=== PATIENT | female | born 1950 | race Caucasian/White ===

== ENCOUNTER 2023-10-09 08:58 | Emergency (ER) | payer MEDICARE, SELFPAY ==
[2023-10-09 09:07] VITALS: BP 146/79; PULSE 69; RESP 16; TEMP 36.9; O2SAT 100; BMI 28.5
--- NOTE | 2023-10-09 10:18 | ED_ITS ---
HPI - Extremity Injury (Lower) General Chief Complaint: Extremity Injury, Lower Stated Complaint: Lower Left leg pain Time Seen by Provider: 10/09/23 09:53 History of Present Illness HPI Narrative: Patient is a 73-year-old female history of stasis dermatitis in bilateral lower extremities presenting today with worsening erythema. She was actually seen evaluated October 05 by primary care provider when she was having some increased redness in her leg. She was started on Bactrim she is on her 3rd or 4th day of Bactrim she reports a new spot of redness. She reports significant pain and cramping in her calf. No fever or chills no chest pain shortness of breath. No history of DVT or PE. Related Data Home Medications Medication Instructions Recorded Confirmed alendronate 70 mg tablet 70 mg PO QWEEK 05/31/23 10/06/23 clobetasol 0.05 % topical ointment topical DAILY 05/31/23 10/06/23 levothyroxine 50 mcg tablet 50 mcg PO DAILY 05/31/23 10/06/23 lisinopril 10 mg tablet 10 mg PO DAILY 05/31/23 10/06/23 omeprazole 20 mg capsule,delayed 20 mg PO DAILY 05/31/23 10/06/23 release Previous Rx's Medication Instructions Recorded sulfamethoxazole 800 1 tab PO BID #10 tabs 10/06/23 mg-trimethoprim 160 mg tablet (Bactrim DS) cephalexin 500 mg capsule 500 mg PO TID #21 caps 10/09/23 Allergies Allergy/AdvReac Type Severity Reaction Status Date / Time cefuroxime AdvReac Unknown Verified 10/09/23 11:52 indomethacin [From Indocin] AdvReac Unknown Verified 10/09/23 09:12 ipratropium [From Atrovent] AdvReac Unknown Verified 10/09/23 11:52 montelukast [From Singulair] AdvReac Unknown Verified 10/09/23 09:12 oxytetracycline AdvReac Unknown Verified 10/09/23 09:12 [From Terramycin] Patient History Medical History Vertigo (~2021) Recurrent sinusitis Cataracts, bilateral (~2016) History of urinary incontinence (~2019) Colon polyps Stasis dermatitis of both legs History of colon cancer GERD (gastroesophageal reflux disease) Hypothyroidism Benign essential HTN Hyperlipidemia Surgical History Anesthesia Hx of cholecystectomy Family History Father History of heart disease Hyperlipidemia Hypertension History of heart attack Mother Congestive heart failure Atrial fibrillation Brother Cancer Diabetes mellitus Brother Multiple medical problems Sister Lung cancer Stomach cancer Grandfather Pneumonia Grandmother History of heart disease Stroke Social History Smoking Status: Former smoker Smoking Status: Former smoker alcohol intake frequency: 0-2 drinks per day Substance Use Type: does not use Exam Initial Vital Signs Initial Vital Signs: Vital Signs Temperature 98.5 F 10/09/23 09:07 Pulse Rate 69 10/09/23 09:07 Respiratory Rate 16 10/09/23 09:07 Blood Pressure 146/79 H 10/09/23 09:07 Pulse Oximetry 100 10/09/23 09:07 Oxygen Delivery Method Room Air 10/09/23 09:07 GENERAL: Well-appearing, well-nourished and in no acute distress. CARDIOVASCULAR: peripheral pulses in tact, cap refill <2 sec RESPIRATORY: No respiratory distress, speaks in full sentences without difficulty EXTREMITIES: Normal range of motion, no clubbing or edema. Neurovascularly intact NEUROLOGICAL: Cranial nerves II through XII grossly intact. Normal gait and speech. SKIN: Multiple areas left leg patchy erythema non circumferential blanchable Right leg also has smaller patches which she reports is stable Course Orders Ordered: ED Orders 10/09/23 10:23 US periph venous low extrem lt Stat Vital Signs Vital signs: Vital Signs - 8 hr 10/09/23 09:07 10/09/23 11:54 10/09/23 11:55 Temperature 98.5 F Pulse Rate 69 79 Respiratory Rate 16 Blood Pressure 146/79 H 151/72 H Pulse Oximetry 100 94 Oxygen Delivery Method Room Air 10/09/23 11:55 10/09/23 12:00 Temperature 97.7 F Pulse Rate 80 72 Respiratory Rate 16 Blood Pressure 157/72 H Pulse Oximetry 95 95 Oxygen Delivery Method Room Air MDM - Extremity Injury (Lower) Imaging Data US - DVT: Radiologist's Impression: PROCEDURE: US PERIPH VENOUS LOW EXTREM LT INDICATIONS: swelling redness TECHNIQUE: Real-time imaging, as well as color and pulse Doppler interrogation, were performed of the lower extremity deep veins from the inguinal ligament to the popliteal fossa, with documentation of the visualized calf veins. COMPARISON: None. FINDINGS: The common femoral, femoral, popliteal, and the visualized calf veins are normally compressible, and free of intraluminal thrombus. Color and pulse Doppler demonstrate normal phasic intraluminal flow. There is normal augmentation resp onse to distal compression maneuver. IMPRESSION: No findings of lower extremity deep venous thrombosis. Dictated by: Shala Garvin M.D. on 10/09/2023 at 10:35 MDM Narrative Medical decision making narrative: Patient is a 73-year-old female history of stasis dermatitis with started on Bactrim. According to PCP note there is some suspicion for DVT based on history of venous insufficiency visible stasis dermatitis she also has remote history of colon cancer. Patient was instructed to come to the ED if getting worse over the weekend. She has no infectious symptoms is afebrile here. Ultrasound has been reviewed and negative for DVT. Will change antibiotic to Keflex for 7 days to help cover for strep and MRSA Discharge Plan Departure Patient Disposition: Home Clinical Impression: Cellulitis Instructions: DI for Cellulitis -- Adult Activity Restrictions/Additional Instructions: *You have been diagnosed with cellulitis *What to do: Ultrasound is negative today for blood clot. I do think it is more likely cellulitis or stasis dermatitis *Continue to take medications as directed Stop taking Bactrim Start taking Keflex 500 mg 3 times a day for 7 days *Follow up with your primary care provider in 2-3 days or call [phone] Please follow-up with Dr. Umaña *Return to ER if you should have fever chills worsening redness pain swelling or any new, worsening or concerning symptoms Prescriptions: New cephalexin 500 mg capsule 500 mg PO TID Qty: 21 0RF No Action alendronate 70 mg tablet 70 mg PO QWEEK levothyroxine 50 mcg tablet 50 mcg PO DAILY lisinopril 10 mg tablet 10 mg PO DAILY omeprazole 20 mg capsule,delayed release(DR/EC) 20 mg PO DAILY clobetasol 0.05 % ointment topical DAILY sulfamethoxazole-trimethoprim [Bactrim DS] 800-160 mg tablet 1 tab PO BID Qty: 10 0RF Referrals: Bree Hernandez DO [Primary Care Provider] - Stand Alone Forms: Patient Portal/API
--- NOTE | 2023-10-09 10:20 | PC.NURSE ---
Left and right lower leg red patches; painful to palpation. Pt states she also has contact dermatitis.
--- NOTE | 2023-10-09 10:23 | DI.US.S_ITS ---
PROCEDURE: US PERIPH VENOUS LOW EXTREM LT INDICATIONS: swelling redness TECHNIQUE: Real-time imaging, as well as color and pulse Doppler interrogation, were performed of the lower extremity deep veins from the inguinal ligament to the popliteal fossa, with documentation of the visualized calf veins. COMPARISON: None. FINDINGS: The common femoral, femoral, popliteal, and the visualized calf veins are normally compressible, and free of intraluminal thrombus. Color and pulse Doppler demonstrate normal phasic intraluminal flow. There is normal augmentation response to distal compression maneuver. IMPRESSION: No findings of lower extremity deep venous thrombosis. Dictated by: Shala Garvin M.D. on 10/09/2023 at 10:35 Approved by: Shala Garvin M.D. on 10/09/2023 at 10:36
[2023-10-09 11:54] VITALS: PULSE 79; O2SAT 94
[2023-10-09 11:55] VITALS: BP 151/72; PULSE 80; O2SAT 95
[2023-10-09 12:00] VITALS: BP 157/72; PULSE 72; RESP 16; TEMP 36.5; O2SAT 95
== END 2023-10-09 12:00 | disposition home or self-care (01) ==
PROVIDERS: Emergency Provider Emergency Medicine; PCP Family Medicine
DX: L03.116 Cellulitis of left lower limb (principal)
CPT/HCPCS: 93971; 99283

== ENCOUNTER → 2024-05-15 09:35 | Outpatient (CLI) | payer MEDICARE, SELFPAY ==
[2024-05-15 11:31] LABS: Alanine Aminotransferase 17 IU/L (<35); Albumin 4.6 g/dL (3.5-5.0); Albumin Globulin Ratio 1.6 (1.0-2.8); Alkaline Phosphatase 65 U/L (38-126); Aspartate Aminotransferase 25 IU/L (14-36); BUN Creatinine Ratio 18.5 (6-22); Bilirubin Total 0.5 mg/dL (0.2-1.3); Blood Urea Nitrogen 15 mg/dL (7-17); Calcium 9.8 mg/dL (8.4-10.2); Carbon Dioxide 25 mmol/L (22-32); Chloride 96 mmol/L (98-107); Cholesterol 229 mg/dL (140-199); Estimated Glomerular Filt Rate > 60 mL/min (>60); Globulin 2.8 g/dL (1.7-4.1); Glucose 88 mg/dL (80-110); HDL Cholesterol 40 mg/dL (40-60); HEMOLYSIS < 15 (0-50); LDL Cholesterol Calculated 170 mg/dL (<100); Potassium 4.7 mmol/L (3.4-5.1); Sodium 131 mmol/L (137-145); Total Protein 7.4 g/dL (6.3-8.2); Triglycerides 97 mg/dL (35-150)
[2024-05-15 15:35] LABS: Hep C Virus Ab w/Reflex Quant NEGATIVE s/c (NEGATIVE)
== END ==
LOC: LAB 09:36
PROVIDERS: PCP Family Medicine; Referring Provider Family Medicine; Visit Provider Family Medicine
DX: E78.5 Hyperlipidemia, unspecified (principal); I10 Essential (primary) hypertension; E03.9 Hypothyroidism, unspecified; Z11.59 Encounter for screening for other viral diseases
CPT/HCPCS: 36415; 80053; 80061; 84443; 86803

== ENCOUNTER → 2024-06-04 09:59 | Outpatient (CLI) | payer MEDICARE, SELFPAY ==
--- NOTE | 2024-06-04 10:01 | DI.RAD.S_ITS ---
PROCEDURE: XR DEXA AXIAL SKELETON INDICATIONS: routine surviance on patient w/ prev dx of osteoporosis COMPARISON: None. FINDINGS: Lumbar Spine: Bone mineral density 0.891 g/cm2, T score -1.5. Left Femoral Neck: Bone mineral density 0.531 g/cm2, T score -2.9. Left Hip: Bone mineral density 0.667 g/cm2, T score -2.3. Fracture Risk Calculation (when applicable): 10-year fracture risk of a major osteoporotic fracture 58 percent and of a hip fracture 37 percent. (T score greater or equal to -1.0 to: NORMAL) (T score from -1.1 to -2.4: OSTEOPENIA) (T score less than or equal to -2.5: OSTEOPOROSIS) IMPRESSION: Osteoporosis. Follow-up guidelines as follows: Osteoporosis: Consider a repeat DEXA and Vertebral Fracture Assessment (VFA) exam in 2 years or sooner if medically necessary, to reassess this patient's status. Osteopenia: Consider a repeat DEXA in 2-3 years to reassess this patient's status, or if there is a new clinical indication. Normal: Consider a repeat DEXA in 5 years or sooner, or if there is a new clinical indication. All treatment decisions require clinical judgment and consideration of individual patient factors, including patient preferences, comorbidities, previous drug use, risk factors not captured in the FRAX model (e.g., frailty, falls, vitamin D deficiency, increased bone turnover, interval significant decline in bone density ) and possible under- or over-estimation of fracture risk by FRAX. In addition, the NOF Guide recommends that FDA-approved medical therapies be considered in postmenopausal women and men age >= 50 years with a: * Hip or vertebral (clinical or morphometric) fracture * T-score of <=-2.5 at the spine or hip * Ten-year fracture probability by FRAX of >= 3% for hip fracture or >=20% for major osteoporotic fracture. Dictated by: Hemanth Brice M.D. on 06/04/2024 at 16:13 Approved by: Hemanth Brice M.D. on 06/04/2024 at 16:14
== END ==
PROVIDERS: PCP Family Medicine; Referring Provider Family Medicine; Visit Provider Family Medicine
DX: M81.0 Age-related osteoporosis without current pathological fracture
CPT/HCPCS: 77080

== ENCOUNTER → 2024-06-08 08:05 | Outpatient (CLI) | payer MEDICARE, SELFPAY ==
--- NOTE | 2024-06-08 08:06 | DI.MG.S_ITS ---
MM screening mammo BI: 06/08/2024. BI-RADS: 2 CLINICAL: 73-year old female for bilateral screening mammogram. Tyrer-Cuzick lifetime risk of 10.4%. No personal or first-degree family history of breast cancer. Current reported family history of breast cancer: paternal aunt. The patient had a prior right breast biopsy. PRIOR EXAMS 11/04/22, 10/20/22, 10/19/21. MAMMOGRAPHY TECHNIQUE: 2D and 3D (tomosynthesis) digital mammographic views obtained, with additional images as needed for full coverage. Current study was also evaluated with a Computer Aided Detection (CAD) system. DENSITY C. The breasts are heterogeneously dense, which may obscure small masses. MAMMOGRAPHY FINDINGS Right: Biopsy marker present on the right. There are no suspicious masses, calcifications, or other findings in the breast. Left: No suspicious mass, asymmetry, microcalcification, or other abnormality seen. IMPRESSION: Right * No evidence of malignancy with benign findings. Left * No evidence of malignancy. RECOMMENDATIONS Bilateral * Annual screening mammography. OVERALL ASSESSMENT CATEGORY BI-RADS-2: Benign. The [employer] recommends annual screening mammography beginning at age 40 for women with average risk of breast cancer. ELECTRONICALLY SIGNED: Ruth Mcdonnell M.D. on 06/08/2024 at 09:57:08 AM PT Interpreting Station ID: [id number]
== END ==
PROVIDERS: PCP Family Medicine; Referring Provider Family Medicine; Visit Provider Family Medicine
DX: Z12.31 Encounter for screening mammogram for malignant neoplasm of breast (principal); Z80.3 Family history of malignant neoplasm of breast; R92.333 Mammographic heterogeneous density, bilateral breasts
CPT/HCPCS: 77063; 77067

== ENCOUNTER → 2024-11-07 09:36 | Outpatient (CLI) | payer MEDICARE, SELFPAY ==
[2024-11-07 11:28] LABS: Cholesterol 214 mg/dL (140-199); HDL Cholesterol 41 mg/dL (40-60); Triglycerides 113 mg/dL (35-150)
== END ==
PROVIDERS: PCP Family Medicine; Referring Provider Family Medicine; Visit Provider Family Medicine
DX: Z00.00 Encounter for general adult medical examination without abnormal findings (principal); E78.5 Hyperlipidemia, unspecified
CPT/HCPCS: 36415; 80061

== ENCOUNTER → 2024-11-20 14:04 | Outpatient (CLI) | payer MEDICARE, SELFPAY ==
--- NOTE | 2024-11-20 14:04 | DI.CT.S_ITS ---
PROCEDURE: CT SINUS SCREEN WO CON INDICATIONS: frontal sinus pain/pressure TECHNIQUE: Noncontrast 3.0 mm axial images acquired from the frontal sinuses to the mid- sella, with coronal and sagittal reformats. For radiation dose reduction, the following was used: automated exposure control, adjustment of mA and/or kV according to patient size. COMPARISON: None. FINDINGS: Image quality: Excellent. Maxillary Sinuses: No bony remodeling or destruction. Small mucosal thickening/mucous retention cyst at the inferior right maxillary sinus. Otherwise, the maxillary sinuses are clear. Ethmoid Air Cells: No bony remodeling or destruction. Sinuses are clear. Sphenoid Sinuses: No bony remodeling or destruction. Sinuses are clear. Frontal Sinuses: No bony remodeling or destruction. Sinuses are clear. Ostiomeatal Complexes: Ostiomeatal complexes are patent. No Arthur cells. Miscellaneous: Visualized intra-orbital contents are normal. No teena bullosa or paradoxical turbinate curvature. Mild leftward nasal septal deviation with spurring. IMPRESSION: Mild mucosal thickening/small mucous retention cysts at the inferior right maxillary sinus. Otherwise, the paranasal sinuses are clear. Dictated by: Rivera Dhaliwal M.D. on 11/20/2024 at 16:18 Approved by: Rivera Dhaliwal M.D. on 11/20/2024 at 16:21
== END ==
PROVIDERS: PCP Family Medicine; Referring Provider Family Medicine; Visit Provider Family Medicine
DX: J32.9 Chronic sinusitis, unspecified (principal); R42 Dizziness and giddiness; J34.1 Cyst and mucocele of nose and nasal sinus
CPT/HCPCS: 70486